=== PATIENT | male | born 1965 | race Caucasian/White ===

== ENCOUNTER 2020-04-08 15:42 | Outpatient (REF) | payer BC, SELFPAY ==
[2020-04-08 17:03] LABS: MANUAL DIFF FLAG NO
[2020-04-08 17:07] LABS: Basophils Percent Auto 0.3 % (0-2); Eosinophils Absolute Auto 0.2 X10*3/uL (0.0-0.4); Eosinophils Percent Auto 2.8 % (0-4); Hematocrit 47.3 % (42-52); Hemoglobin 15.9 g/dl (14.0-18.0); Imm Gran Abs Auto 0.02 X10*3/uL (0.00-0.03); Imm Gran Pct Auto 0.2 % (0.0-0.4); Lymphocytes Absolute Auto 2.2 X10*3/uL (1.2-4.9); Lymphocytes Percent Auto 25.3 % (20-40); Mean Corpuscular HGB Conc 33.6 g/dl (31.0-36.0); Mean Corpuscular Hemoglobin 29.9 pg (27.0-33.0); Mean Corpuscular Volume 88.9 fL (80-98); Mean Platelet Volume 11.4 fL (9.4-12.4); Monocytes Absolute Auto 0.5 X10*3/uL (0.1-1.2); Monocytes Percent Auto 5.9 % (2-11); Neutrophils Absolute Auto 5.7 X10*3/uL (2.0-8.3); Neutrophils Percent Auto 65.5 % (45-73); Platelet Count 208 X10*3/uL (160-400); Red Blood Count 5.32 X10*6/uL (4.60-5.80); Red Cell Distribution Width 12.1 % (11.0-16.0); White Blood Count 8.7 X10*3/uL (4.8-10.8)
[2020-04-08 17:34] LABS: Alanine Aminotransferase 33 U/L (0-40); Albumin Level 4.7 g/dL (3.5-5.0); Alkaline Phosphatase 55 U/L (39-117); Aspartate Amino Transferase 23 U/L (5-37); Bilirubin Direct 0.3 mg/dL (0.0-0.5); Bilirubin Total 1.1 mg/dL (0.0-1.0); Blood Urea Nitrogen 24 mg/dL (9-16); Estimated Glomerular Filt Rate > 60; Lipase 21 U/L (8-78); Total Protein 7.2 g/dL (6.5-8.0)
== END 2020-04-08 15:43 | disposition home or self-care (01) ==
LOC: HO.LAB 15:42
PROVIDERS: Visit Provider Internal Medicine Gastroenterology
DX: R10.12 Left upper quadrant pain (principal)
CPT/HCPCS: 36415; 80076; 82565; 83690; 84520; 85025

== ENCOUNTER 2020-04-16 06:28 | Outpatient (REF) | payer BC, SELFPAY ==
--- NOTE | ~2020-04-16 | CT_ITS ---
EXAMINATION: CT ABDOMEN AND PELVIS WITH CONTRAST CLINICAL INFORMATION: Left upper quadrant and left flank pain COMPARISON: Previous CT of the abdomen and pelvis July 2015 and abdominal ultrasound August 2015 TECHNIQUE: Multidetector volumetric images were obtained from the superior aspect of the liver through the pubic symphysis following administration 85 mL of Omnipaque 350 intravenous contrast. Sagittal and coronal reformatted images were obtained on the technologist's workstation. Oral contrast: Yes This CT examination was performed using dose optimization techniques as appropriate, variously including the following: *Automated exposure control *Adjustment of mA and/or kV according to patient size (this includes techniques or standardized protocols for targeted exams where dose is matched to indication/reason for exam; i.e. extremities or head) *Use of iterative reconstruction technique DLP: 470 mGy-cm FINDINGS: LUNG BASES: The visualized lung bases are clear. There may be a small hiatal hernia. LIVER, GALLBLADDER, AND BILIARY TREE: There are several small low-attenuation lesions in the left lobe of the liver measuring 5 mm axial image 11 and 16 series 3. There is a 3 mm low-attenuation lesion in the left lobe axial image 17 series 3. These are difficult to characterize due to small size. These are not seen on previous noncontrast enhanced CT or ultrasound exam from 2016. No other focal liver lesion is seen. The gallbladder has been removed. There is no biliary duct dilatation. PANCREAS: Unremarkable. SPLEEN: Unremarkable. ADRENAL GLANDS: Unremarkable. KIDNEYS AND URETERS: The kidneys are normal in size, shape, and attenuation. No hydronephrosis, hydroureter, or calculi seen. No perinephric stranding. BLADDER: Unremarkable. GASTROINTESTINAL TRACT: The small and large bowel are unremarkable. The stomach is not optimally distended. The appendix is not identified. ABDOMINAL WALL: There are small ventral and supraumbilical hernias containing fat. LYMPH NODES: Normal. VASCULAR: Unremarkable. PELVIC VISCERA: Unremarkable. OSSEOUS STRUCTURES: There is degenerative disc disease at L5-S1. CT/CT abdomen pelvis w con IMPRESSION: Postcholecystectomy. Several small low-attenuation lesions in the left lobe of the liver difficult to characterize due to small size. Small esophageal hernia. Stomach not optimally distended. Small ventral and supraumbilical hernias containing fat.
[2020-04-16] MEDS: Barium Sulfate Oral (Vanilla) 450 ML ORAL.SUSP 900 ML PO (09:05)
[2020-04-16] MEDS: iohexoL 350 MG/ML 100 ML INFUS..BTL IV (09:06)
== END 2020-04-16 06:29 | disposition home or self-care (01) ==
LOC: HO.CT 06:28
PROVIDERS: Visit Provider Internal Medicine Gastroenterology
DX: R10.12 Left upper quadrant pain (principal); R10.9 Unspecified abdominal pain
CPT/HCPCS: 74177; Q9967

== ENCOUNTER 2022-04-11 07:00 | Day surgery (SDC) | payer BC, SELFPAY ==
[2022-04-11 07:08] VITALS: BMI 29.0
[2022-04-11] MEDS: Lactated Ringers 1,000 ML 50 ML IVCONT (07:13)
[2022-04-11 07:22] VITALS: BP 131/86; PULSE 60; RESP 18; TEMP 36.6; O2SAT 98
--- NOTE | 2022-04-11 08:03 | MHC.SHP ---
Pre-Procedural Eval Section A Date of Service: 04/11/22 Section B Chief Complaint: screening Details of Present Illness: see H*P no changes Allergies: Allergies Allergy/AdvReac Type Severity Reaction Status Date / Time No Known Allergies Allergy Verified 04/11/22 07:46 [No Known Allergies*] Plan I have reviewed the history and physical and performed a pertinent physical examination on my patient. No changes have occurred unless specified. Time Spent With Patient Time: Total time managing care of this patient today ____ minutes.
--- NOTE | 2022-04-11 08:06 | P.CONAN_ITS ---
[facility] Past Medical History Medical History Abnormal CT scan Cervical spondylosis Chronic headaches GERD (gastroesophageal reflux disease) IBS (irritable bowel syndrome) Seasonal allergic rhinitis Functional capacity: independent ambulation Family History Family history of problems with anesthesia: No Surgical History Surgical History H/O arthroscopic knee surgery H/O colonoscopy H/O foot surgery H/O sinus surgery Hx of appendectomy Hx of cholecystectomy Social History Social History Patient Tobacco Use Status: Never used Tobacco Are you DNR?: No Advance Directives: No Advance Directives Information Provided: Yes Nutrition Risks: No Nutritional Risk Meds Allergies Allergy/AdvReac Type Severity Reaction Status Date / Time No Known Allergies Allergy Verified 04/11/22 07:46 [No Known Allergies*] Active Medications: Current Medications Lactated Ringer's (Lr) 1,000 mls @ 50 mls/hr IVCONT .Q20H NICOLA Last Admin: 04/11/22 07:13 Dose: 50 mls/hr Home Medications Medication Instructions Recorded Confirmed Last Taken Type Anusol-HC 1 supp BID 04/10/22 04/10/22 Unknown History dicyclomine 1 tab PO DIRECTED 04/10/22 04/10/22 Unknown History ibuprofen 2 tab PO DAILY PRN Pain 04/10/22 04/10/22 Unknown History omeprazole 1 tab PO DAILY 04/10/22 04/10/22 Unknown History Exam Exam Date and Time: April 11, 2022 0806 Height,Weight and Vital Signs: Height 5 ft 9 in Weight 89.358 kg Last Vital Signs Temp 97.8 F 04/11/22 07:22 Pulse 60 04/11/22 07:22 Resp 18 04/11/22 07:22 BP 131/86 04/11/22 07:22 Pulse Ox 98 04/11/22 07:22 O2 Del Method 04/11/22 07:22 Airway Mallampati Class: II TM Dist: >3cm Heart: RRR Lungs: CTA Assessment and Plan Final Anesthetic Review Family History of Problems with Anesthesia: No ASA Class: II Final Preanesthetic Review: Meds/Allgs Chart Reviewed, Consent Obtained/Reviewed and Anes Risks/Benef Reviewed Patient Risk: Low Procedure Risk: Low Anesthetic Plan Anesthetic Plan: MAC: Disposition: Standard PACU
--- NOTE | 2022-04-11 08:33 | PM.OP ---
Brief Operative Note Date of Service: 04/11/22 Pre-op diagnosis: screening Post-op diagnosis: same Procedure: colonoscopy Surgeon: Nando Strickland Anesthesia: MAC Was an Bricklayer Helper used for this Procedure?: No Estimated blood loss (mL): 0 Pathology: none sent Condition: stable Disposition: PACU
[2022-04-11 08:40] VITALS: BP 106/50; PULSE 57; RESP 16; TEMP 36.3; O2SAT 95
[2022-04-11 08:55] VITALS: BP 130/82; PULSE 69; RESP 16; TEMP 36.6; O2SAT 96
--- NOTE | 2022-04-11 09:57 | OP_ITS ---
SURGEON: Nando Strickland MD INDICATIONS: Personal history of colon polyps and family history of colon polyps. PREOPERATIVE DIAGNOSIS: POSTOPERATIVE DIAGNOSIS: PROCEDURE PERFORMED: Colonoscopy to the terminal ileum. ESTIMATED BLOOD LOSS: COMPLICATIONS: ANESTHESIA: Monitored anesthesia care. ASSISTANTS: SPECIMENS: DESCRIPTION OF PROCEDURE: Date: 04/11/22. A history and physical was performed. The risks and benefits of the procedure were explained to the patient. Informed consent was obtained. The patient was placed in the left lateral decubitus position. A digital rectal exam was performed and it was found to be normal. The Olympus pediatric video colonoscope was introduced into the rectum and advanced to the cecum without difficulty. The cecum was identified by translumination, palpation, and identification of the ileocecal valve. Examination was performed. The scope was removed. He tolerated the procedure well and was returned to the recovery area in stable condition. FINDINGS: The terminal ileum was examined and appeared normal. Visualized colonic mucosa was normal. The quality of the prep was good. No polyps were identified, and there was mild sigmoid diverticulosis. Retroflexed examination showed small internal hemorrhoids. IMPRESSION: Normal colonoscopy. RECOMMENDATIONS: Repeat colonoscopy is recommended in 5 years due to family history and personal history. MD KALEB Up/CLYDE / [id number] MTDD
--- NOTE | 2022-04-11 09:57 | HO.POSTANES ---
Post Anesthesia Evaluation Post Anesthesia Evaluation Vital Signs: Vital Signs Temp Pulse Resp BP Pulse Ox O2 Del Method 04/11/22 08:55 97.8 F 69 16 130/82 96 Room Air 04/11/22 08:40 97.4 F 57 16 106/50 L 95 Room Air 04/11/22 07:22 97.8 F 60 18 131/86 98 Room Air Anesthesia: Monitored Mental Status: Awake Pain Control: Satisfactory Nausea/Vomiting: None Hydration: Adequate Anesthesia-Related Issues: No Anes. Related Issues
== END 2022-04-11 09:25 | disposition home or self-care (01) ==
PROVIDERS: PCP Family Medicine; Visit Provider Internal Medicine Gastroenterology
PROC: 0DJD8ZZ Inspection of Lower Intestinal Tract, Via Natural or Artificial Opening Endoscopic (ICD-10-PCS; CPT 45378; principal; 2022-04-11 08:10)
DX: Z12.11 Encounter for screening for malignant neoplasm of colon (principal); Z86.010 Personal history of colon polyps; Z83.71 Family history of colonic polyps; K57.30 Diverticulosis of large intestine without perforation or abscess without bleeding; K64.8 Other hemorrhoids; K58.9 Irritable bowel syndrome, unspecified; K76.89 Other specified diseases of liver; J30.2 Other seasonal allergic rhinitis; Z79.899 Other long term (current) drug therapy; Z79.1 Long term (current) use of non-steroidal anti-inflammatories (NSAID); Z90.49 Acquired absence of other specified parts of digestive tract
CPT/HCPCS: 45378

== ENCOUNTER 2022-04-12 08:21 | Outpatient (REF) | payer BC, SELFPAY ==
--- NOTE | ~2022-04-12 | US_ITS ---
EXAMINATION: US ABDOMEN COMPLETE CLINICAL INFORMATION: Abnormal CT of liver. COMPARISON: CT abdomen and pelvis with contrast 04/16/2020. Ultrasound abdomen complete 08/19/2015. TECHNIQUE: Real-time imaging of the abdominal viscera. FINDINGS: PANCREAS: Head and body appear unremarkable. Tail not visualized. ABDOMINAL AORTA: The proximal, mid, and distal segments are normal in caliber. INFERIOR VENA CAVA: Visualized portions are normal. LIVER: The liver is normal in size. The liver contour is normal. Subcentimeter benign left simple hepatic cysts for which no further dedicated follow up imaging is indicated. Parenchymal echogenicity otherwise appears unremarkable. No intrahepatic biliary duct dilatation is seen. Hepatopedal portal flow. GALLBLADDER: Surgically absent. COMMON BILE DUCT: Normal in caliber measuring 0.5 cm in diameter. RIGHT KIDNEY: No hydronephrosis. No renal calculi or focal parenchymal lesions. The kidney measures 11.2 cm in maximum dimension. LEFT KIDNEY: No hydronephrosis. No renal calculi or focal parenchymal lesions. The kidney measures 12.0 cm in maximum dimension. SPLEEN: The spleen measures 12.0 cm in maximum dimension. FREE FLUID: None. US/US abdomen complete IMPRESSION: Essentially unremarkable study. Benign subcentimeter simple hepatic cysts for which no further dedicated follow up imaging is indicated. Status post cholecystectomy.
== END 2022-04-12 08:22 | disposition home or self-care (01) ==
LOC: HO.US 08:21
PROVIDERS: PCP Family Medicine; Visit Provider Internal Medicine Gastroenterology
DX: R93.2 Abnormal findings on diagnostic imaging of liver and biliary tract (principal)
CPT/HCPCS: 76700